=== PATIENT | female | born 1965 | race Caucasian/White ===

== ENCOUNTER 2016-09-13 07:03 | Emergency (ER) | payer OTHER ==
[~2016-09-13] VITALS: Ht 170.2 cm; Wt 68.0 kg
[2016-09-13 07:17] VITALS: BP 147/99
--- NOTE | 2016-09-13 07:47 | ED CARDIAC/CP/PALPITATIONS ---
History of Present Illness General Chief Complaint: General Adult Stated Complaint: RIGHT SIDE RIB PAIN Source: patient Exam Limitations: no limitations Vital Signs & Intake/Output Vital Signs & Intake/Output Vital Signs Date Time Temp Pulse Resp B/P Pulse O2 O2 Flow FiO2 Ox Delivery Rate 09/13 0631 Room Air Room Air 09/13 716 98.3 71 20 147/99 99 Room Air Allergies Coded Allergies: doxycycline (Severe, NEAR SYNCOPAL EPISODE 09/13/16) epinephrine (Intermediate, FELT STRANGE 09/13/16) Sulfa (Sulfonamide Antibiotics) (UNKNOWN 09/13/16) Reconcile Medications No Known Home Medications Triage Note: C/O NASAL CONGESTION AND COUGH X 11 DAYS. THIS AM WAS COUGHING AND FELT A "POP" IN HER RIGHT BACK AREA. C/O PAIN IN R RIB AREA. T Triage Nurses Notes Reviewed? yes HPI: Patient presents for evaluation of sudden onset of severe sharp right rib pain that began after coughing at about 6:15 this morning while at home. The patient has been suffering cold symptoms over the past 11 or so days but she denies phlegm production. She denies any ecchymoses or soft tissue swelling in the area of pain. In fact she felt a little soreness over the past 2 days in the same area prior to the onset of a sudden sharp pain. Pain worsens with deep inspiration and certain movements. Past History Travel History Traveled to [place] past 21 day No Medical History Any Pertinent Medical History? see below for history Tetanus Vaccine: 08/16/13 Surgical History Surgical History: non-contributory Psychosocial History What is your primary language Singaporean Tobacco Use: Never used ETOH Use: occasional use Family History Hx Contributory? No Review of Systems Review of Systems Constitutional: Reports: no symptoms. EENTM: Reports: no symptoms. Respiratory: Reports: no symptoms. Cardiovascular: Reports: no symptoms. GI: Reports: no symptoms. Genitourinary: Reports: no symptoms. Musculoskeletal: Reports: see HPI. Skin: Reports: no symptoms. Neurological/Psychological: Reports: no symptoms. Hematologic/Endocrine: Reports: no symptoms. Immunologic/Allergic: Reports: no symptoms. All Other Systems: Reviewed and Negative Physical Exam Physical Exam Cardiovascular: SEE BELOW Comments: Gen.: Well-nourished, well-developed, no acute respiratory distress. Patient grimaces in pain with certain movements. Head: Normocephalic, atraumatic. Eyes: Normal inspection bilaterally Ears: Normal inspection bilaterally Nose: Normal inspection Throat/mouth : Moist mucosa Neck: Supple, full range of motion, no goiter Heart: Regular rate and rhythm, no murmurs rubs or gallops Lungs: Clear to auscultation bilaterally with normal air entry Chest: Tenderness of the right anterolateral ribs that reproduces the pain of the chief complaint, no ecchymoses or soft tissue swelling noted. Back: Normal range of motion Abdomen: Soft, nontender, nondistended, normal bowel sounds Extremities: Normal range of motion grossly Neurologic: Cranial nerves grossly intact, speech is clear Skin: warm and dry Psychiatric: Calm, cooperative, no apparent delusions or hallucinations Core Measures ACS in differential dx? No Severe Sepsis Present: No Septic Shock Present: No Progress Differential Diagnosis: RIB FRACTURE, MUSCLE STRAIN, PNEUMONIA Plan of Care: Anti-inflammatory, cough suppressant Initial ED EKG: none Departure Departure Disposition: HOME OR SELF CARE Condition: Stable Clinical Impression Primary Impression: Intercostal muscle strain Qualifiers: Encounter type: initial encounter Qualified Code: S29.011A - Strain of muscle and tendon of front wall of thorax, initial encounter Secondary Impressions: Cough Referrals: PATIENT HAS NO PRIMARY CARE DR (PCP/Family) Additional Instructions: Diclofenac as needed for pain. Tessalon Perles as needed for cough. Follow-up with your primary care doctor if not improving in 5-7 days. Return if any concerns or sudden worsening. Thank you for choosing the [facility] for your care. It was a pleasure to serve you today. Miguel Angel Thurston M.D. [facility] Departure Forms: Customer Survey General Discharge Information Prescriptions: Current Visit Scripts Benzonatate (Tessalon Perle) 1 CAP PO TID PRN COUGH #21 CAP Diclofenac Sodium 1 TAB PO BID PRN PAIN #14 TAB Critical Care Note Critical Care Note Critical Care Time: non-applicable
[2016-09-13] MEDS ORDERED: TESSALON PERLE100 M1 PO (07:50)
[2016-09-13] MEDS ORDERED: DICLOFENAC SODI75 M2 PO (07:50)
== END 2016-09-13 07:59 ==
LOC: ERH 07:03
DX: S29.011A Strain of muscle and tendon of front wall of thorax, initial encounter (principal); R07.81 Pleurodynia